=== PATIENT | female | born 1970 | race Caucasian/White ===

== ENCOUNTER 2018-03-29 06:00 | Emergency (ER) | payer OTHER ==
[2018-03-29] MEDS ORDERED: ONDANSETRON 4 MG/2 ML VIAL IVP ONE (06:14)
[2018-03-29] MEDS ORDERED: NS 500 ML IV ONE (06:15)
--- NOTE | 2018-03-29 06:44 | CPEKG ---
Heart Rate: 69 RR Interval: 870 P-R Interval: 132 QRSD Interval: 94 QT Interval: 408 QTC Interval: 437 P [place]: 42 QRS [place]: 12 T Wave [place]: 150 EKG Severity - ABNORMAL ECG - EKG Impression: SINUS RHYTHM EKG Impression: NONSPECIFIC T ABNORMALITIES, ANT-LAT LEADS Electronically Signed By: Cytnhia Pace 29-Mar-2018 07:45:07
[2018-03-29] MEDS ORDERED: NS 1,000 ML IV ONE (06:46)
[2018-03-29 07:03] LABS: PLATELET COUNT 248 10^3/uL (150-400)
[2018-03-29] MEDS ORDERED: DIAZEPAM 10 MG/2 ML SYR IVP ONE (07:12)
[2018-03-29] MEDS ORDERED: IOPAMIDOL (ISOVUE 370) 100 ML BTL IV ONE (07:15)
--- NOTE | 2018-03-29 07:20 | EDPHY ---
H & P Stated Complaint: Vomiting coffee ground for an hour-no abdo pain. Source: Patient - Personal History LMP (Females 10-55): Irregular Current Tetanus/Diphtheria Vaccine: Unsure Current Tetanus Diphtheria and Acellular Pertussis (TDAP): Unsure - Medical/Surgical History Hx Asthma: Yes Hx Chronic Respiratory Disease: No Hx Diabetes: No Hx Cardiac Disease: No Hx Renal Disease: No Hx Cirrhosis: No Hx Alcoholism: No Hx HIV/AIDS: No Hx Splenectomy or Spleen Trauma: No Other PMH: HTN-hasn't taken meds for several months, mild depression, and anxiety, uses edible marijuana. - Social History Smoking Status: Former smoker Alcohol Use: Occasionally (Three alcoholic beverages a few times a month.) Drug Use: Other (edibles nightly for sleep) <Cynthia Pace - Last Filed: 03/29/18 07:13> <Fatuma Monzon - Last Filed: 03/29/18 09:49> Time Seen by Provider: 03/29/18 06:44 HPI/ROS: CC: Room spinning, vomiting since midnight HPI: This 47-year-old female with past medical history of untreated hypertension for a number of years and medical noncompliance presents to the emergency department today stating that she woke up about midnight and the room was spinning. It was spinning so fast that she became acutely nauseated and vomited numerous times. She then felt flushed and was dripping in sweat. She denies chest pain or shortness of breath. She states she felt fine when she went to bed. However, she did have a headache yesterday that she characterized as a migraine and rated it as a 6/10. It came on gradually. She had history of regular migraines a number of years ago but has only gotten them sporadically for the last 15 years.. She does complain of a headache now but states it is not a migraine and rates it at a 2/10. There is pressure in the bitemporal region. She denies any visual changes, numbness, tingling or weakness. She has no tinnitus. She has not been ill recently. When she vomited the emesis was dark in color. She had chicken, brussels sprouts, aug rotten potatoes and three bourgons with cherries for dinner yesterday. She states she has had hypertension for a number of years but has not been on medications except for atenolol 25 mg twice a day for a month approximately 3 months ago. She did not go back to the urgent care that prescribed it to get a refill. She denies having a primary care provider. She states about 10 years ago she was tried on verapamil which caused a rash. REVIEW OF SYSTEMS: Constitutional: No fever, no chills. Eyes: No discharge. ENT: No sore throat. Respiratory: No cough, no shortness of breath. Cardiac: No chest pain, no palpitations. Gastrointestinal: No abdominal pain. Genitourinary: No dysuria. Musculoskeletal: No neck stiffness. Skin: No rashes. Neurological: See HPI. (Cynthia Pace) - Medical/Surgical History PMH: PMH: Untreated hypertension, insomnia, migraine headaches PSH: , D&C FH: Mother alive at 71 y/o with only "allergies"; Biological father alive in his 70s with bladder cancer Allergies: Beclomethasone, morphine, codeine, verapamil Medications: None 1st day last menstrual period 21 days ago No primary care provider (Cynthia Pace) - Physical Exam Exam: General Appearance: Alert, mod distress. Eyes: Pupils equal and round no pallor or injection. No papilledema. ENT, Mouth: Mucous membranes are moist. Respiratory: There are no retractions, lungs are clear to auscultation. Cardiovascular: Regular rate and rhythm. No murmurs, gallops, or rubs. Gastrointestinal: Abdomen is soft with mild suprapubic tenderness, no masses, bowel sounds normal. Neurological: Awake and alert, CN II-XII grossly intact, no nystagmus, no pronator drift, strength 5/5 x 4, normal FTN, normal [id number], normal alternating movements. Sensory with slightly diminished sensation to light touch left lateral upper arm. Skin: Warm and dry, no rashes. Musculoskeletal: Neck is supple nontender. No meningeal signs. Extremities without edema. Psychiatric: Patient is oriented X 3, there is no agitation. DIFFERENTIAL DIAGNOSIS: After history and physical exam differential diagnosis was considered for but not limited to: hypertensive urgency/emergency, SAH, migraine, vertigo, cardiac, pancreatitis, GI bleed, bowel obstruction. (Cynthia Pace) Constitutional: Initial Vital Signs Temperature (C) 36.6 C 03/29/18 06:16 Heart Rate 82 03/29/18 06:16 Respiratory Rate 18 03/29/18 06:16 Blood Pressure 182/111 H 03/29/18 06:16 O2 Sat (%) 97 03/29/18 06:16 O2 Delivery Mode Room Air Allergies/Adverse Reactions: beclomethasone [From Beconase AQ] Allergy (Intermediate, Verified 03/29/18 06:13 ) Unknown codeine Allergy (Intermediate, Verified 03/29/18 06:13) Unknown morphine Allergy (Intermediate, Verified 03/29/18 06:13) Hypotension verapamil Allergy (Intermediate, Verified 03/29/18 06:13) Unknown Home Medications: Medication Instructions Recorded Atenolol [Tenormin 25 mg (*)] 25 mg PO BID 7 Days #14 tab 03/29/18 Ondansetron Odt [Zofran Odt 4 mg 4 mg PO Q4 #10 tab 03/29/18 (*)] [facility] 03/29/18 Medical Decision Making <Cynthia Pace - Last Filed: 03/29/18 07:13> - Diagnostics Imaging: Discussed imaging studies w/ call box wirer Radiologist <Fatuma Monzon - Last Filed: 03/29/18 09:49> - Diagnostics Imaging Results: Imaging Impressions Head CT 03/29/18 07:04 Impression: 1. No significant intracranial abnormality seen. If symptoms worsen, additional imaging may be necessary. Findings discussed with Dr. Monzon at 8:21 hour, 03/29/2018. Head CTA 03/29/18 07:04 Impression: 1. Normal CT angiogram of the neck. 2. Normal CT angiogram of the [place], with normal variation, as detailed above. Note: All calculations were performed using NASCET criteria. Findings discussed with Dr. Jen Monzon at 8:30 hour, 03/29/2018. Neck CTA 03/29/18 07:[address]: [address] angiogram of the neck. 2. Normal CT angiogram of the [place], with normal variation, as detailed above. Note: All calculations were performed using NASCET criteria. Findings discussed with Dr. Jen Monzon at 8:30 hour, 03/29/2018. ED Course/Re-evaluation: The patient was seen and examined. Vital signs were reviewed and were significant for hypertension in the range of 180s mmHg systolic and 110s mmHg diastolic. No old records were available for review. An EKG was performed which showed a normal sinus rhythm with a heart rate of 69 and nonspecific T-wave abnormalities. Again no prior EKG was available for comparison. She was given a L IV fluids, Zofran for her nausea and Valium 2 mg IV push for her vertigo. A plain CT of her head as well as a CT angio of her head neck were ordered to rule out subarachnoid hemorrhage or aneurysm. CBC, comprehensive metabolic panel, lipase, and troponin were ordered. The CBC is unremarkable and the test was negative. The remainder of the studies are pending. No antihypertensive medication was ordered at this time until we see how her blood pressure responds to the Valium and the results of her imaging. The patient was signed out to Dr. Monzon for follow-up on the imaging and the remainder of the labs as well as any further evaluation and treatment. (Cynthia Pace) Other Provider: 7:30 am received patient in sign-out from Dr. Pace. Presentation, recent and past medical history discussed. I personally examined the patient shortly there after and patient awake and alert in no obvious distress. States headache is improving. Will offer oral antihypertensive medications to replace her previous prescription and meclizine for continued dizziness. Awaiting lab and CT studies. CT scan of the head with and without contrast unremarkable. Laboratory evaluations unremarkable. Re-evaluation of patient, generally improved however still dizzy but able to ambulate to bathroom. Also blood pressure still elevated and I discussed in detail with her the importance of continued antihypertensive medications and close follow-up with a primary care physician this coming week. No evidence of hypertensive emergency, stroke, dissection or aneurysm. Suspect benign positional vertigo not labyrinthitis. DC blood pressure 195/96. (Fatuma Monzon) - Data Points Laboratory Results: Laboratory Results 03/29/18 06:15 03/29/18 06:15 03/29/18 03/29/18 03/29/18 07:49 06:15 06:15 WBC RBC Hgb POC Hgb 14.3 gm/dL gm/dL (12.6-16.3) Hct POC Hct 42 % % (38-47) MCV MCH MCHC RDW Plt Count MPV Neut % (Auto) Lymph % (Auto) Vance % (Auto) Eos % (Auto) Baso % (Auto) Nucleat RBC Rel Count Absolute Neuts (auto) Absolute Lymphs (auto) Absolute Monos (auto) Absolute Eos (auto) Absolute Basos (auto) Absolute Nucleated RBC Immature Gran % Immature Gran # POC Sodium 146 mEq/L H mEq/L (135-145) Sodium 143 mEq/L mEq/L (135-145) POC Potassium 4.1 mEq/L mEq/L (3.3-5.0) Potassium 3.7 mEq/L mEq/L (3.5-5.2) POC Chloride 109 mEq/L mEq/L (97-110) Chloride 107 mEq/L mEq/L (97-110) Carbon Dioxide 18 mEq/l L mEq/l (22-31) Anion Gap 18 mEq/L H mEq/L (8-16) POC BUN 11 mg/dL mg/dL (7-23) BUN 12 mg/dL mg/dL (7-23) Creatinine 0.6 mg/dL mg/dL (0.6-1.0) POC Creatinine 0.5 mg/dL L mg/dL (0.6-1.0) Estimated GFR > 60 Glucose 168 mg/dL H mg/dL (70-100) POC Glucose 111 mg/dL H mg/dL (70-100) Calcium 9.2 mg/dL mg/dL (8.5-10.4) Total Bilirubin 0.9 mg/dL mg/dL (0.1-1.4) Conjugated Bilirubin 0.4 mg/dL mg/dL (0.0-0.5) Unconjugated Bilirubin 0.5 mg/dL mg/dL (0.0-1.1) AST 16 IU/L IU/L (14-46) ALT 13 IU/L IU/L (9-52) Alkaline Phosphatase 73 IU/L IU/L (38-126) Troponin I < 0.012 ng/mL ng/mL (0.000-0.034) Total Protein 7.6 g/dL g/dL (6.3-8.2) Albumin 4.1 g/dL g/dL (3.5-5.0) Lipase 111 IU/L IU/L (23-300) Beta HCG, Qual NEGATIVE 03/29/18 06:15 WBC 6.18 10^3/uL 10^3/uL (3.80-9.50) RBC 5.15 10^6/uL 10^6/uL (4.18-5.33) Hgb 14.2 g/dL g/dL (12.6-16.3) POC Hgb Hct 43.2 % % (38.0-47.0) POC Hct MCV 83.9 fL fL (81.5-99.8) MCH 27.6 pg L pg (27.9-34.1) MCHC 32.9 g/dL g/dL (32.4-36.7) RDW 14.3 % % (11.5-15.2) Plt Count 248 10^3/uL 10^3/uL (150-400) MPV 9.5 fL fL (8.7-11.7) Neut % (Auto) 66.3 % % (39.3-74.2) Lymph % (Auto) 27.3 % % (15.0-45.0) Vance % (Auto) 5.0 % % (4.5-13.0) Eos % (Auto) 0.8 % % (0.6-7.6) Baso % (Auto) 0.3 % % (0.3-1.7) Nucleat RBC Rel Count 0.0 % % (0.0-0.2) Absolute Neuts (auto) 4.09 10^3/uL 10^3/uL (1.70-6.50) Absolute Lymphs (auto) 1.69 10^3/uL 10^3/uL (1.00-3.00) Absolute Monos (auto) 0.31 10^3/uL 10^3/uL (0.30-0.80) Absolute Eos (auto) 0.05 10^3/uL 10^3/uL (0.03-0.40) Absolute Basos (auto) 0.02 10^3/uL 10^3/uL (0.02-0.10) Absolute Nucleated RBC 0.00 10^3/uL 10^3/uL (0-0.01) Immature Gran % 0.3 % % (0.0-1.1) Immature Gran # 0.02 10^3/uL 10^3/uL (0.00-0.10) POC Sodium Sodium POC Potassium Potassium POC Chloride Chloride Carbon Dioxide Anion Gap POC BUN BUN Creatinine POC Creatinine Estimated GFR Glucose POC Glucose Calcium Total Bilirubin Conjugated Bilirubin Unconjugated Bilirubin AST ALT Alkaline Phosphatase Troponin I Total Protein Albumin Lipase Beta HCG, Qual Medications Given: Discontinued Medications Atenolol (Tenormin) 25 mg PO EDNOW ONE Stop: 03/29/18 07:52 Last Admin: 03/29/18 08:19 Dose: Not Given Diazepam (Valium) 2 mg IVP EDNOW ONE Stop: 03/29/18 07:13 Last Admin: 03/29/18 07:23 Dose: 2 mg Sodium Chloride (Ns) 500 mls @ 1,000 mls/hr IV ONCE ONE PRN Reason: Protocol Stop: 03/29/18 06:44 Last Admin: 03/29/18 06:21 Dose: 500 mls Sodium Chloride (Ns) 1,000 mls @ 0 mls/hr IV ONCE ONE; Wide Open PRN Reason: Protocol Stop: 03/29/18 06:47 Last Admin: 03/29/18 07:23 Dose: 1,000 mls Meclizine HCl (Meclizine Hcl) 50 mg PO EDNOW ONE Stop: 03/29/18 07:52 Last Admin: 03/29/18 08:19 Dose: 50 mg Metoprolol Tartrate (Lopressor) 25 mg PO EDNOW ONE Stop: 03/29/18 08:11 Last Admin: 03/29/18 08:19 Dose: 25 mg Ondansetron HCl (Zofran) 4 mg IVP EDNOW ONE Stop: 03/29/18 06:15 Last Admin: 03/29/18 06:22 Dose: 4 mg Point of Care Test Results: 03/29/18 07:49 POC Sodium 146 H POC Potassium 4.1 POC Chloride 109 POC BUN 11 POC Creatinine 0.5 L POC Glucose 111 H Departure <Cynthia Pace - Last Filed: 03/29/18 07:13> <Fatuma Monzon - Last Filed: 03/29/18 09:49> - Departure Disposition: Home, Routine, Self-Care Clinical Impression: Vertigo Hypertension Qualifiers: Hypertension type: essential hypertension Qualified Code(s): I10 - Essential ( primary) hypertension Condition: Fair Instructions: Vertigo (DC), Hypertension (ED) Additional Instructions: Take meclizine [id number] as discussed. 50 mg every 6-8 hours as needed for dizziness. Continue atenolol as prescribed with your next dose this evening. The Zofran is a prescription medication for nausea. It is important that he follow up with the primary care physician later this week for blood pressure recheck. Return to the emergency department if symptoms worsen, you developed chest pain, shortness of breath or other concerning new problems. Referrals: Iam Saeed MD [[facility] Primary Care Provider] - As per Instructions Prescriptions: Atenolol [Tenormin 25 mg (*)] 25 mg PO BID 7 Days #14 tab Ondansetron Odt [Zofran Odt 4 mg (*)] 4 mg PO Q4 #10 tab
[2018-03-29] MEDS ORDERED: ATENOLOL 50 MG TAB PO ONE (07:51)
[2018-03-29] MEDS ORDERED: MECLIZINE HCL 25 MG TAB PO ONE (07:51)
[2018-03-29] MEDS ORDERED: METOPROLOL TARTRATE 25 MG TAB PO ONE (08:10)
[2018-03-29 09:06] VITALS: BP 184/109
== END 2018-03-29 09:08 | disposition home or self-care (01) ==
LOC: CED 06:00
DX: I10 Essential (primary) hypertension (principal); R42 Dizziness and giddiness; J45.909 Unspecified asthma, uncomplicated; E86.9 Volume depletion, unspecified; Z87.891 Personal history of nicotine dependence
CPT/HCPCS: 70450-PO; 70496-PO; 70498-PO; 80048-PO; 80076-PO; 82947-QW; 83690-PO; 84484-PO; 84703-PO; 85025-PO; 96374; J2405; J3360; Q9967

== ENCOUNTER 2018-05-05 20:42 | Emergency (ER) | payer OTHER ==
--- NOTE | 2018-05-05 20:53 | CPEKG ---
Heart Rate: 54 RR Interval: 1111 P-R Interval: 136 QRSD Interval: 98 QT Interval: 464 QTC Interval: 440 P [place]: 46 QRS [place]: 49 T Wave [place]: 49 EKG Severity - NORMAL ECG - EKG Impression: SINUS RHYTHM Electronically Signed By: Alex Curry 05-May-2018 21:06:36
[2018-05-05] MEDS ORDERED: NS 500 ML IV ONE ×2 (21:00→23:32)
[2018-05-05] MEDS ORDERED: ASPIRIN 81 MG CHEWABLE TAB PO ONE (21:00)
--- NOTE | 2018-05-05 21:05 | EDPHY ---
H & P Stated Complaint: CP 40 mins, L + Central chest, Bilateral arm tingling. Source: Patient Exam Limitations: No limitations - Personal History LMP (Females 10-55): Irregular Current Tetanus/Diphtheria Vaccine: Unsure Current Tetanus Diphtheria and Acellular Pertussis (TDAP): Unsure - Medical/Surgical History Hx Asthma: Yes Hx Chronic Respiratory Disease: No Hx Diabetes: No Hx Cardiac Disease: No Hx Renal Disease: No Hx Cirrhosis: No Hx Alcoholism: No Hx HIV/AIDS: No Hx Splenectomy or Spleen Trauma: No Other PMH: HTN-hasn't taken meds for several months, mild depression, and anxiety + panic attacks, uses edible marijuana. - Family History Significant Family History: Hypertension - Social History Smoking Status: Former smoker Alcohol Use: Sober Drug Use: None Time Seen by Provider: 05/05/18 20:54 HPI/ROS: CHIEF COMPLAINT: Chest pain HISTORY OF PRESENT ILLNESS: Patient is a 47-year-old female with history of anxiety and hypertension who comes to the emergency department complaining of chest pain for the last 45 min as well as tingling in both arms and hands. No shortness of breath. No diaphoresis, mild nausea but no vomiting. She has also been dealing with intermittent vertigo over the last month but does not feel that that is related. She states that she has had these chest pain symptoms 5 times this month. The most recent time was about a week ago. Typically last for about 5 min but today it has been 45 min. She denies history of cardiac or pulmonary disease. No palpitations. REVIEW OF SYSTEMS: Constitutional: denies: chills, fever, recent illness, recent injury EENTM: denies: blurred vision, double vision, nose congestion Respiratory: denies: cough, shortness of breath Cardiac: See HPI Gastrointestinal/Abdominal: denies: abdominal pain, diarrhea, nausea, vomiting, blood streaked stools Genitourinary: denies: dysuria, frequency, hematuria, pain Musculoskeletal: denies: joint pain, muscle pain Skin: denies: lesions, rash, jaundice, bruising Neurological: denies: headache, numbness, paresthesia, tingling, dizziness, weakness Hematologic/Lymphatic: denies: blood clots, easy bleeding, easy bruising Immunologic/allergic: denies: HIV/AIDS, transplant EXAM: GENERAL: Well-appearing, well-nourished and in no acute distress. HEAD: Atraumatic, normocephalic. EYES: Pupils equal round and reactive to light, extraocular movements intact, sclera anicteric, conjunctiva are normal. ENT: TMs normal, nares patent, oropharynx clear without exudates. Moist mucous membranes. NECK: Normal range of motion, supple without lymphadenopathy or JVD. LUNGS: Breath sounds clear to auscultation bilaterally and equal. No wheezes rales or rhonchi. HEART: Regular rate and rhythm without murmurs, rubs or gallops. ABDOMEN: Soft, nontender, normoactive bowel sounds. No guarding, no rebound. No masses appreciated. BACK: No CVA tenderness, no spinal tenderness, step-offs or deformities EXTREMITIES: Normal range of motion, no pitting or edema. No clubbing or cyanosis. NEUROLOGICAL: Cranial nerves II through XII grossly intact. Normal speech, normal gait. 5/5 strength, normal movement in all extremities, normal sensation PSYCH: Normal mood, normal affect. SKIN: Warm, dry, normal turgor, no visible rashes or lesions. (Alex Curry) Constitutional: Initial Vital Signs Heart Rate 58 L 05/05/18 20:56 Respiratory Rate 18 05/05/18 20:56 Blood Pressure 191/118 H 05/05/18 20:56 O2 Sat (%) 98 05/05/18 20:56 O2 Delivery Mode Room Air O2 (L/minute) 2 Allergies/Adverse Reactions: beclomethasone [From Beconase AQ] Allergy (Intermediate, Verified 03/29/18 06:13 ) Unknown codeine Allergy (Intermediate, Verified 03/29/18 06:13) Unknown morphine Allergy (Intermediate, Verified 03/29/18 06:13) Hypotension verapamil Allergy (Intermediate, Verified 03/29/18 06:13) Unknown Home Medications: Medication Instructions Recorded Atenolol [Tenormin 25 mg (*)] 25 mg PO BID 7 Days #14 tab 03/29/18 Ondansetron Odt [Zofran Odt 4 mg 4 mg PO Q4 #10 tab 03/29/18 (*)] [facility] 03/29/18 Medical Decision Making - Diagnostics Imaging: Discussed imaging studies w/ on call Radiologist - Diagnostics EKG Interpretation: An EKG obtained and was read and documented in trace view. Please see trace view for full reading and report. sinus rhythm, no acute ischemic changes A repeat EKG obtained and was read and documented in trace view. Please see trace view for full reading and report. Sinus bradycardia A repeat EKG obtained and was read and documented in trace view. Please see trace view for full reading and report. Sinus bradycardia, no acute ischemic changes (Alex Curry) ED Course/Re-evaluation: Accepted care from Dr. Curry. Awaiting DDimer, and repeat trop at Midnight. If normal, prefers to go home despite recommendation by Dr. Curry to be admitted. 11:35 DDimer positive, discussed with patient and CTPE ordered. Reviewed "rule out" plan. 12:[address] scan read as negative. Incidental finding of small, 1 cm, lesion in liver possible cyst, hemangioma, although unclear. Discussed with patient need for follow-up ultrasound and/or CT scan to further evaluate lesion. She will discuss this with her primary care physician. Second troponin negative. Patient still preferring to go home as opposed to admission for observation for rule out. Currently chest pain-free. (Fatuma Monzon) 9:15 p.m. the patient is having another episode of pain. Will repeat the EKG and treat with nitroglycerin. 10:40 p.m. patient is currently symptom free. She has had episodes of bradycardia which she states are not abnormal for her. She had her baseline heart rate is in the 50s and a gets lower when she is on her atenolol. Her initial troponin is negative. We are awaiting D-dimer. I offered admission to the hospital for observation and stress testing but she declines. She does agree to stay for 2nd troponin which would be around midnight. I will transfer the case to Dr. Monzon. (Alex Curry) Differential Diagnosis: Partial list of the Differential diagnosis considered include but were not limited to; anxiety, acute coronary disease, arrhythmia and although unlikely based on the history and physical exam, I also considered PE, pneumonia, pneumothorax, dissection, aneurysm. (Alex Curry) - Data Points Laboratory Results: Laboratory Results 05/05/18 21:00 Medications Given: Discontinued Medications Aspirin (Aspirin) 324 mg PO EDNOW ONE Stop: 05/05/18 21:01 Last Admin: 05/05/18 21:07 Dose: 324 mg Sodium Chloride (Ns) 500 mls @ 0 mls/hr IV EDNOW ONE; Wide Open PRN Reason: Protocol Stop: 05/05/18 21:01 Last Admin: 05/05/18 21:21 Dose: 500 mls Sodium Chloride (Ns) 500 mls @ 1,000 mls/hr IV EDNOW ONE PRN Reason: Protocol Stop: 05/06/18 00:01 Last Admin: 05/05/18 23:36 Dose: 500 mls Nitroglycerin (Nitrostat) 0.4 mg SL Q5M PRN PRN Reason: Chest Pain Last Admin: 05/05/18 21:40 Dose: 0.4 mg Point of Care Test Results: Chemistry 05/06/18 05/05/18 05/05/18 00:02 21:08 21:06 POC Sodium 142 mEq/L mEq/L (135-145) POC Potassium 3.6 mEq/L mEq/L (3.3-5.0) POC Chloride 108.0 mEq/L mEq/L (97-110) POC Total CO2 25 mEq/L mEq/L (22-31) POC BUN 11 mg/dL mg/dL (7-23) POC Creatinine 0.7 mg/dL mg/dL (0.6-1.0) POC Glucose 104 mg/dL H mg/dL (70-100) POC Calcium 9.0 mg/dL mg/dL (8.5-10.4) POC Total Bilirubin 0.9 mg/dL mg/dL (0.1-1.4) POC AST 23 IU/L IU/L (14-46) POC ALT 16 IU/L IU/L (9-52) POC Alk Phosphatase 63 IU/L IU/L (38-126) POC Troponin I 0.00 ng/mL ng/mL 0.00 ng/mL ng/mL (0.00-0.08) (0.00-0.08) POC Total Protein 6.9 g/dL g/dL (6.3-8.2) POC Albumin 3.5 g/dL g/dL (3.5-5.0) Departure - Departure Disposition: Home, Routine, Self-Care Clinical Impression: Chest pain Qualifiers: Chest pain type: unspecified Qualified Code(s): R07.9 - Chest pain, unspecified Condition: Fair Instructions: Chest Pain (ED) Additional Instructions: Follow-up with your primary care physician in 1-2 days without fail. You will need to have that small lesion on your liver re-evaluated either by ultrasound or CT scan as discussed. If you develop further chest pain, shortness of breath or other new concerning symptoms please return to the emergency department. Referrals: KIA ROME [Primary Care Provider] - 1-2 days without fail
[2018-05-05] MEDS: NITROGLYCERIN 0.4 MG BTL SL PRN ×2 (21:16→21:40)
--- NOTE | 2018-05-05 21:36 | CPEKG ---
Heart Rate: 47 RR Interval: 1277 P-R Interval: 136 QRSD Interval: 100 QT Interval: 500 QTC Interval: 442 P [place]: 44 QRS [place]: 45 T Wave [place]: 50 EKG Severity - OTHERWISE NORMAL ECG - EKG Impression: SINUS BRADYCARDIA Electronically Signed By: Alex Curry 05-May-2018 22:03:24
[2018-05-05 22:58] LABS: PLATELET COUNT 253 10^3/uL (150-400)
[2018-05-05 23:06] LABS: INR 0.92 (0.83-1.16); PROTIME(PATIENT) 12.6 SEC (12.0-15.0)
[2018-05-05] MEDS ORDERED: IOPAMIDOL (ISOVUE 370) 100 ML BTL IV ONE (23:32)
[2018-05-06 00:21] VITALS: BP 172/104
--- NOTE | 2018-05-06 11:26 | CPEKG ---
Heart Rate: 53 RR Interval: 1132 P-R Interval: 132 QRSD Interval: 96 QT Interval: 484 QTC Interval: 455 P [place]: 49 QRS [place]: 39 T Wave [place]: 44 EKG Severity - NORMAL ECG - EKG Impression: SINUS RHYTHM Electronically Signed By: Nico Nuñez 06-May-2018 16:35:44
== END 2018-05-06 00:34 | disposition home or self-care (01) ==
LOC: CED 20:42
DX: R07.9 Chest pain, unspecified (principal); J45.909 Unspecified asthma, uncomplicated; I10 Essential (primary) hypertension; E86.9 Volume depletion, unspecified; Z87.891 Personal history of nicotine dependence
CPT/HCPCS: 71046-PO; 71275-PO; 80053-PO; 84484-PO; Q9967

== ENCOUNTER 2018-09-07 22:11 | Emergency (ER) | payer SELFPAY ==
--- NOTE | 2018-09-07 22:32 | EDPHY ---
H & P Source: Patient, Old records Exam Limitations: No limitations - Medical/Surgical History Hx Asthma: Yes Hx Chronic Respiratory Disease: No Hx Diabetes: No Hx Cardiac Disease: No Hx Renal Disease: No Hx Cirrhosis: No Hx Alcoholism: No Hx HIV/AIDS: No Hx Splenectomy or Spleen Trauma: No Other PMH: HTN-hasn't taken meds for several months, mild depression, and anxiety + panic attacks, uses edible marijuana. - Family History Significant Family History: No pertinent family hx - Social History Smoking Status: Former smoker Alcohol Use: Sober Drug Use: None Time Seen by Provider: 09/07/18 22:24 HPI/ROS: CHIEF COMPLAINT: Fever HISTORY OF PRESENT ILLNESS: The patient is a 47-year-old female who is 13 days out from orthopedic surgery to her left wrist repairing her tendon after a wrist and thumb fracture in June. She had increased pain in the area over the last 3 days and today followed up with her orthopedist Dr. Yogi Rush. He examined her incision and wrist and told her that it looked spectacular. She however has had continued pain and then this evening developed a fever of 103 at home. Here it is 38.3. She did try taking an ice water bath about an hour ago. She denies any other potential sources of fevers. No dysuria. No sore throat or runny nose. No cough or shortness of breath. No chest pain. No abdominal pain. She did have some diarrhea but it resolved 3 days ago. No headache or neck pain. Modifying factors: Minimal pain control tramadol REVIEW OF SYSTEMS: Constitutional: See HPI EENTM: denies: blurred vision, double vision, nose congestion Respiratory: denies: cough, shortness of breath Cardiac: denies: chest pain, irregular heart rate, lightheadedness, palpitations Gastrointestinal/Abdominal: denies: abdominal pain, diarrhea, nausea, vomiting, blood streaked stools Genitourinary: denies: dysuria, frequency, hematuria, pain Musculoskeletal: See HPI Skin: denies: lesions, rash, jaundice, bruising Neurological: denies: headache, numbness, paresthesia, tingling, dizziness, weakness Hematologic/Lymphatic: denies: blood clots, easy bleeding, easy bruising Immunologic/allergic: denies: HIV/AIDS, transplant 10 systems reviewed and negative except as noted EXAM: GENERAL: Well-appearing, well-nourished and in no acute distress. HEAD: Atraumatic, normocephalic. EYES: Pupils equal round and reactive to light, extraocular movements intact, sclera anicteric, conjunctiva are normal. ENT: TMs normal, nares patent, oropharynx clear without exudates. Moist mucous membranes. NECK: Normal range of motion, supple without lymphadenopathy or JVD. LUNGS: Breath sounds clear to auscultation bilaterally and equal. No wheezes rales or rhonchi. HEART: Regular rate and rhythm without murmurs, rubs or gallops. ABDOMEN: Soft, nontender, normoactive bowel sounds. No guarding, no rebound. No masses appreciated. BACK: No CVA tenderness, no spinal tenderness, step-offs or deformities EXTREMITIES: Left wrist exquisitely tender with movement of thumb or palpation. She states that this is baseline over the last several days. No erythema or swelling. Wound clean dry and intact. No dehiscence. No fluctuance. NEUROLOGICAL: Cranial nerves II through XII grossly intact. Normal speech, normal gait. 5/5 strength, normal movement in all extremities, normal sensation , normal reflexes PSYCH: Normal mood, normal affect. SKIN: Warm, dry, normal turgor, no visible rashes or lesions. (Alex Curry) Constitutional: Initial Vital Signs Temperature (C) 38.2 C 09/07/18 22:31 Heart Rate 93 09/07/18 22:31 Respiratory Rate 20 09/07/18 22:31 Blood Pressure 168/107 H 09/07/18 22:31 O2 Sat (%) 96 09/07/18 22:31 O2 Delivery Mode Room Air Allergies/Adverse Reactions: acetaminophen [From Percocet] Allergy (Intermediate, Verified 09/07/18 22:21) Rash beclomethasone [From Beconase AQ] Allergy (Intermediate, Verified 03/29/18 06:13 ) Unknown codeine Allergy (Intermediate, Verified 03/29/18 06:13) Unknown hydrocodone Allergy (Intermediate, Verified 09/07/18 22:21) Rash morphine Allergy (Intermediate, Verified 03/29/18 06:13) Hypotension oxycodone [From Percocet] Allergy (Intermediate, Verified 09/07/18 22:21) Rash verapamil Allergy (Intermediate, Verified 05/13/18 06:13) Unknown Home Medications: Medication Instructions Recorded Atenolol [Tenormin 25 mg (*)] 25 mg PO BID 7 Days #14 tab 03/29/18 Ondansetron Odt [Zofran Odt 4 mg 4 mg PO Q4 #10 tab 03/29/18 (*)] Ibersartin 09/07/18 LORazepam 09/07/18 Liquid D 09/07/18 Tramadol HCl 09/07/18 Medical Decision Making - Diagnostics Imaging: Discussed imaging studies w/ teacher physically impaired Radiologist ED Course/Re-evaluation: I do not see any obvious source of fever for the patient. She did have diarrhea but that is resolved. She has increased pain in the wrist but absolutely no external sign infection. I will obtain lab work including cultures and lactate as well as an x-ray. Care transferred to Dr. Nunez at 11:00 p.m.. (Alex Curry) Differential Diagnosis: Partial list of the Differential diagnosis considered include but were not limited to; viral syndrome, fever, diarrheal illness, wound infection, osteomyelitis, tenosynovitis and although unlikely based on the history and physical exam, I also considered pneumonia, sepsis. (Alex Curry) Other Provider: Pt care turned over at 2300 pending lab results, xray to rule out osteomyelitis and urinalysis. CBC with a normal WBC , however a left shift tbili 2.5 elevated ESR 13 lactate 1.6 CRP >90 blood cultures pending, urine culture pending Urine dip pos leuk, pos nitrite Sent for official UA and urine culture Pt given 1 gm acetaminophen for fever as well as IV fluids. Ceftriaxone 2 gm IVPB to cover urinary tract infection in the setting of high fever. Impression UTI possible bacteremia, concern for impending sepsis Plan Admit for observation Pt admitted to [facility] (Kelle Nunez) - Data Points Laboratory Results: Laboratory Results 09/07/18 22:47 Microbiology Results: MICROBIOLOGY 09/07/18 22:45 Blood Blood Culture - Preliminary Gram Negative Aidan 09/07/18 22:45 Blood Blood Panel (PCR) - Final Escherichia Coli 09/07/18 22:27 Blood Blood Culture - Preliminary Gram Negative Aidan Medications Given: Discontinued Medications Acetaminophen (Tylenol) 1,000 mg PO EDNOW ONE Stop: 09/07/18 23:24 Last Admin: 09/07/18 23:26 Dose: 1,000 mg Sodium Chloride (Ns) 1,000 mls @ 0 mls/hr IV ONCE ONE PRN Reason: Wide Open Stop: 09/07/18 23:54 Last Admin: 09/07/18 23:45 Dose: 1,000 mls Ceftriaxone Sodium 2 gm/ (Sodium Chloride) 100 mls @ 200 mls/hr IV EDNOW ONE PRN Reason: Protocol Stop: 09/08/18 00:44 Last Admin: 09/08/18 00:26 Dose: 100 mls Ondansetron HCl (Zofran Odt) 4 mg PO EDNOW ONE Stop: 09/07/18 22:41 Last Admin: 09/07/18 22:42 Dose: 4 mg Point of Care Test Results: CBC CBC Collection Date 09/07/18 CBC Collection Time 22:45 WBC 7.6 RBC 5.23 HGB 15.4 HCT 45.2 PLT 164 Neut # 7.1 Neut 92.9 LYMPH # 0.4 LYMPH 5.8 Other WBC # 0.1 Other WBC 1.3 MCV 86.4 Chemistry 09/07/18 22:45 POC Sodium 139 mEq/L mEq/L (135-145) POC Potassium 3.4 mEq/L mEq/L (3.3-5.0) POC Chloride 108.0 mEq/L mEq/L (97-110) POC Total CO2 20 mEq/L L mEq/L (22-31) POC BUN 8 mg/dL mg/dL (7-23) POC Creatinine 0.9 mg/dL mg/dL (0.6-1.0) POC Glucose 136 mg/dL H mg/dL (70-100) POC Calcium 9.4 mg/dL mg/dL (8.5-10.4) POC Total Bilirubin 2.4 mg/dL H mg/dL (0.1-1.4) POC AST 25 IU/L IU/L (14-46) POC ALT 16 IU/L IU/L (9-52) POC Alk Phosphatase 68 IU/L IU/L (38-126) POC Total Protein 7.3 g/dL g/dL (6.3-8.2) POC Albumin 4.3 g/dL g/dL (3.5-5.0) Blood Gas/Lactic Acid-Venous 10/22/18 22:48 POC Lactic Acid Manfred 1.6 mmol/L mmol/L (0.7-2.1) Urine Dip Collection Date 09/08/18 Collection Time 00:15 Specific [place] (1.002-1.030) 1.030 PH (5.0-7.5) 6.0 Leukocytes (Negative) Trace Nitrites (Negative) Positive Protein (Negative) 2+ Glucose (Negative) Negative Ketones (Negative) 2+ Urobilnogen (0.2-1.0 EU) 0.2 Bilirubin (Negative) Negative Blood (Negative) 2+ Departure - Departure Disposition: [facility] Clinical Impression: Elevated C-reactive protein (CRP), Fever and chills UTI (urinary tract infection) Qualifiers: Urinary tract infection type: site unspecified Hematuria presence: without hematuria Qualified Code(s): N39.0 - Urinary tract infection, site not specified Condition: Good Referrals: NONE *PRIMARY CARE P,. [Primary Care Provider] - As per Instructions Yogi Rush MD [Medical Doctor] - As per Instructions
[2018-09-07] MEDS ORDERED: ONDANSETRON DISINTEGRATING 4 MG TAB PO ONE (22:40)
[2018-09-07] MEDS ORDERED: ACETAMINOPHEN 500 MG TAB PO ONE (23:23)
[2018-09-07] MEDS ORDERED: NS 1,000 ML IV ONE (23:53)
[2018-09-08 02:07] VITALS: BP 142/89
== END 2018-09-08 02:00 | disposition short-term general hospital (02) ==
LOC: CED 22:11
DX: R50.9 Fever, unspecified (principal); N39.0 Urinary tract infection, site not specified; R79.82 Elevated C-reactive protein (CRP); M25.532 Pain in left wrist; Z98.890 Other specified postprocedural states; Z88.6 Allergy status to analgesic agent; Z88.5 Allergy status to narcotic agent
CPT/HCPCS: 73130-PO; 80053-PO; 83605-PO; 86141-90; 96365; J0696